=== PATIENT | male | born 1945 | race Caucasian/White ===

== ENCOUNTER 2018-01-01 09:57 | Emergency (ER) | payer MEDICARE, OTHER ==
[2018-01-01 13:10] VITALS: BP 156/77; PULSE 92; RESP 18; TEMP 98.2; O2SAT 97
== END 2018-01-01 11:30 | disposition home or self-care (01) | DRG 552 ==
LOC: ED 09:57
DX: M54.5 Low back pain (principal)
CPT/HCPCS: 99282; 99283

== ENCOUNTER 2018-06-02 20:13 | Emergency (ER) | payer MEDICARE, OTHER ==
[2018-06-02 19:48] LABS: SEDIMENTATION RATE 27 mm/hr (0-15)
[2018-06-02 20:51] VITALS: TEMP 97.3; O2SAT 98
[2018-06-02] MEDS: PREDNISONE 20 MG TAB PO ONE (21:55)
[2018-06-02] MEDS ORDERED: PREDNISONE 20 MG TAB ONE (21:56)
[2018-06-02 23:15] VITALS: BP 160/79; PULSE 68; RESP 20
== END 2018-06-02 22:13 | disposition home or self-care (01) | DRG 948 ==
LOC: ED 20:13
DX: R70.0 Elevated erythrocyte sedimentation rate (principal); H34.232 Retinal artery branch occlusion, left eye; H34.9 Unspecified retinal vascular occlusion
CPT/HCPCS: 36415; 85049; 85651; 99282; A9270-GY

== ENCOUNTER 2018-06-07 07:20 | Day surgery (SDC) | payer MEDICARE, OTHER ==
[2018-06-07] MEDS ORDERED: LIDOCAINE HCL 1% MPF 30 SOL ONE ×2 (07:43→08:14)
[2018-06-07] MEDS ORDERED: PROPOFOL 500 MG/50 ML EMU IV ONE (08:14)
[2018-06-07] MEDS ORDERED: FENTANYL 100MCG/2ML SOL ONE (08:14)
[2018-06-07] MEDS ORDERED: ONDANSETRON HCL 4 MG/2 ML SOL ONE (08:15)
[2018-06-07 09:43] VITALS: BP 157/80; PULSE 52; RESP 12; TEMP 97.9; O2SAT 96
== END 2018-06-07 09:46 | disposition home or self-care (01) | DRG 948 ==
LOC: SURG 07:20
PROVIDERS: ATTEND Surgery
DX: R70.0 Elevated erythrocyte sedimentation rate (principal); R79.82 Elevated C-reactive protein (CRP); H53.9 Unspecified visual disturbance; I70.8 Atherosclerosis of other arteries
CPT/HCPCS: G0168; J2405; J3010; J2001; J2704